=== PATIENT | female | born 1945 | race Caucasian/White ===

== ENCOUNTER → 2022-08-16 14:14 | Outpatient (BNVA) | payer BC, SELFPAY | PROVIDERS: PCP Nurse Practitioner Adult Health; Visit Provider Psychiatry & Neurology Neurology | DX: G51.31 Clonic hemifacial spasm, right (principal) | CPT/HCPCS: 64612; J0585 ==

== ENCOUNTER → 2022-12-01 08:23 | Outpatient (BNVA) | payer BC, SELFPAY | PROVIDERS: PCP Nurse Practitioner Adult Health; Visit Provider Psychiatry & Neurology Neurology | DX: G51.31 Clonic hemifacial spasm, right (principal) | CPT/HCPCS: 64612; J0585 ==

== ENCOUNTER 2024-01-23 08:35 | Outpatient (AMB) | payer OTHER, SELFPAY ==
--- NOTE | 2024-01-23 08:37 | MHC.OFFVIS ---
Vital Signs 01/23/24 08:38 Height 5 ft 3 in Weight 126 lb 8 oz BMI 22.4 BP 122/78 Blood Pressure Location Rt brachial Position Sitting Respiration 16 Pulse 97 Pulse Source Pulse Oximeter Pulse Oximetry (%) 97 Oxygen Delivery Method Room Air Intake Visit Reasons: follow up - Mailbox full Intake Note: Pt presents for one year follow up for Hemifacial spasm of right side of face. Ornament Stitcher Required: No Allergies No Known Allergies Allergy (Verified 01/23/24 08:38) HPI Comments Details: 79y/o female with right hemifacial spasm comes for follow up after over 1 year. she was managed with botox but due to her social issues she was unable to come to follow up appointments. she is her with her grand son and wants to restart botox as her spams have increases and is very uncomfortable. [facility] Medical History Hemifacial spasm of right side of face Hypothyroid High cholesterol Social History Alcohol intake: never Patient Tobacco Use Status: Never used Tobacco Physical Exam Vital Signs: Last Vital Signs Pulse 97 01/23/24 08:38 Resp 16 01/23/24 08:38 BP 122/78 01/23/24 08:38 Pulse Ox 97 01/23/24 08:38 Oxygen Delivery Method Room Air 01/23/24 08:38 BMI result Body Mass Index 22.4 Const General: cooperative and comfortable Nutritional Appearance: average body habitus Orientation/consciousness: patient oriented x3 Limitations: no limitations Neck Neck: Yes normal visual inspection Neuro Other: right hemifacial spasm spasm of right eyelids, frontalis, temporalis, zygomaticus orbicularis etc General: patient oriented x3 Cranial nerves: Yes Nystagmus not present and Yes Normal facial strength present Cognition (Neuro): normal cognition Gait exam (Neuro): Normal gait present Motor exam (neuro): 5/5 motor strength present throughout Coordination: kovblt-kt-wwcp test normal Assessment & Plan Assessment & Plan (1) Hemifacial spasm of right side of face: Code(s): G51.31 - Clonic hemifacial spasm, right Category: Medical Plan I will restart BOTOX will get a prior approval and schedule for injection. she will call insurance for transportation services Coding Level of Care Code Est Pt Level 3 (37536) Diagnoses Hemifacial spasm of right side of face G51.31
[2024-01-23 08:38] VITALS: BP 122/78; PULSE 97; RESP 16; O2SAT 97; BMI 22.4
== END 2024-01-23 09:06 | disposition home or self-care (01) ==
PROVIDERS: PCP Nurse Practitioner Adult Health; Visit Provider Psychiatry & Neurology Neurology
DX: G51.31 Clonic hemifacial spasm, right (principal)
CPT/HCPCS: 99213

== ENCOUNTER → 2024-01-23 08:35 | Outpatient (BNVA) | payer OTHER, SELFPAY | PROVIDERS: PCP Nurse Practitioner Adult Health; Visit Provider Psychiatry & Neurology Neurology ==

== ENCOUNTER 2024-03-14 13:53 | Outpatient (AMB) | payer OTHER, SELFPAY ==
--- NOTE | 2024-03-14 14:23 | A.OFFVIS_ITS ---
Vital Signs 03/14/24 14:25 Respiration 16 Pulse 110 H Pulse Source Pulse Oximeter Pulse Oximetry (%) 95 Oxygen Delivery Method Room Air Intake Visit Reasons: BOTOX - Confirmed Intake Note: Pt presents to the office for Botox injections for hemifacial spasms. 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 Side effects were discussed and an informed consent was obtained. Muscles injected Right Lateral canthus - 15 units each Right Lateral Lower eyelid-15 units each Right medial lower lid- 5 units Right Upper eyelid lateral- 5 units each Right Nasolabial fold 10 units each Right Frontalis 10 units Right zygomaticus 10 units Right orbicularis samuel 5 units right mentalis 5 units Total used 80 units Discarded 20 units PFSH Medical History Hemifacial spasm of right side of face Hypothyroid High cholesterol Social History Alcohol intake: never Patient Tobacco Use Status: Never used Tobacco Physical Exam Vital Signs: Last Vital Signs Pulse 110 H 03/14/24 14:25 Resp 16 03/14/24 14:25 Pulse Ox 95 03/14/24 14:25 Oxygen Delivery Method Room Air 03/14/24 14:25 Const General: cooperative and comfortable Nutritional Appearance: average body habitus Orientation/consciousness: patient oriented x3 Limitations: no limitations Neck Neck: Yes normal visual inspection Neuro Other: right hemifacial spasm spasm of right eyelids, frontalis, temporalis, zygomaticus orbicularis etc General: patient oriented x3 Cranial nerves: Yes Nystagmus not present and Yes Normal facial strength present Cognition (Neuro): normal cognition Gait exam (Neuro): Normal gait present Motor exam (neuro): 5/5 motor strength present throughout Coordination: xqoasd-us-bzft test normal Office Procedures Botulinum toxin Injection 24350 - Facial Nerve Procedure code (CPT) selection complete Office Meds onabotulinumtoxinA 100 unit solution for injection Performing Provider: Devorah Valdes MD Performing Location: [facility] [place] [facility] Administered by: Devorah Valdes MD on 03/14/24 14:44 Dose Route Admin Location Dispensed Lot Number Expiration Date [facility] 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 Comments: see HPI Assessment & Plan Assessment & Plan (1) Hemifacial spasm of right side of face: Code(s): G51.31 - Clonic hemifacial spasm, right Category: Medical Plan Patient tolerated the procedure well she will call with any side effects Orders: Orders AMB Botulinum toxin Injection - Patient Supplied Today G51.31 - Clonic hemifacial spasm, right Medications: New onabotulinumtoxinA 100 units subcut ONCE 1 ea 0RF hemifacial spasm G51.31 - Clonic hemifacial spasm, right Coding Level of Care Code Est Pt Level 1 (11074) Diagnoses Hemifacial spasm of right side of face G51.31 CPT Codes Botox Injection - Botox 2: 84121 - Facial Nerve ([id number])
[2024-03-14 14:25] VITALS: PULSE 110; RESP 16; O2SAT 95
== END 2024-03-14 14:39 | disposition home or self-care (01) ==
PROVIDERS: PCP Nurse Practitioner Adult Health; Visit Provider Psychiatry & Neurology Neurology
DX: G51.31 Clonic hemifacial spasm, right (principal)
CPT/HCPCS: 64612

== ENCOUNTER → 2024-03-14 13:53 | Outpatient (BNVA) | payer OTHER, SELFPAY | PROVIDERS: PCP Nurse Practitioner Adult Health; Visit Provider Psychiatry & Neurology Neurology | DX: G51.31 Clonic hemifacial spasm, right (principal) | CPT/HCPCS: 64612; 99211; J0585 ==

== ENCOUNTER 2024-07-17 12:54 | Outpatient (AMB) | payer OTHER, SELFPAY ==
[2024-07-17 12:55] VITALS: BMI 22.3
--- NOTE | 2024-07-17 12:55 | MHC.OFFVIS ---
Vital Signs 07/17/24 12:55 Height 5 ft 3 in Weight 126 lb BMI 22.3 Intake Visit Reasons: BOTOX Intake Note: patient here for botox Allergies No Known Allergies Allergy (Verified 07/17/24 12:58) Medication List - Last Reconciled 07/17/24 by Devorah Valdes MD atorvastatin 20 mg PO DAILY levothyroxine 88 mcg PO DAILY onabotulinumtoxinA (Botox) to be injected to facial muscles q 3 months; HPI Comments Details: 79y/o female comes for treatment of her right , hemifacial spasm with botox Botulinum toxin type A Lot no [id number] Exp 11/2026 was diluted with 2 cc of normal saline at a concentration of 5 units in 0.1 cc. Side effects were discussed and an informed consent was obtained. Muscles injected Right Lateral canthus - 15 units each Right Lateral Lower eyelid-15 units each Right medial lower lid- 5 units Right Upper eyelid lateral- 5 units each Right Nasolabial fold 10 units each Right Frontalis 10 units Right zygomaticus 10 units Right orbicularis samuel 5 units right mentalis 5 units Total used 80 units Discarded 20 units PFSH Medical History Hemifacial spasm of right side of face Hypothyroid High cholesterol Social History Alcohol intake: never Patient Tobacco Use Status: Never used Tobacco Physical Exam Vital Signs: BMI result Body Mass Index 22.3 Const General: cooperative and comfortable Nutritional Appearance: average body habitus Orientation/consciousness: patient oriented x3 Limitations: no limitations Neck Neck: Yes normal visual inspection Neuro Other: right hemifacial spasm spasm of right eyelids, frontalis, temporalis, zygomaticus orbicularis etc General: patient oriented x3 Cranial nerves: Yes Nystagmus not present and Yes Normal facial strength present Cognition (Neuro): normal cognition Gait exam (Neuro): Normal gait present Motor exam (neuro): 5/5 motor strength present throughout Coordination: lsvghz-mi-dijt test normal Office Procedures Botulinum toxin Injection 29916 - Facial Nerve Procedure code (CPT) selection complete Office Meds onabotulinumtoxinA 100 unit solution for injection Performing Provider: Devorah Valdes MD Performing Location: [facility] [place] [facility] Administered by: Devorah Valdes MD on 07/17/24 15:50 Dose Route Admin Location Dispensed Lot Number Expiration Date [employer] Clinical Documentation Nurse 80 unit subcut 100 units [id number] 11/02/26 6876-2360-44 [employer] Comments: see hpi Assessment & Plan Assessment & Plan (1) Hemifacial spasm of right side of face: Code(s): G51.31 - Clonic hemifacial spasm, right Category: Medical Plan Patient tolerated the procedure well she will call with any side effects Orders: Orders AMB Botulinum toxin Injection - Patient Supplied N/C Today G51.31 - Clonic hemifacial spasm, right Medications: New onabotulinumtoxinA 100 units subcut ONCE 1 ea 0RF hemifacial spasm G51.31 - Clonic hemifacial spasm, right Coding Level of Care Code Est Pt Level 1 (84625) Diagnoses Hemifacial spasm of right side of face G51.31 CPT Codes Botox Injection - Botox 2: 61225 - Facial Nerve ([id number])
== END 2024-07-17 13:52 | disposition home or self-care (01) ==
PROVIDERS: PCP Nurse Practitioner Adult Health; Visit Provider Psychiatry & Neurology Neurology
DX: G51.31 Clonic hemifacial spasm, right (principal)
CPT/HCPCS: 64612

== ENCOUNTER → 2024-07-17 12:54 | Outpatient (BNVA) | payer OTHER, SELFPAY | PROVIDERS: PCP Nurse Practitioner Adult Health; Visit Provider Psychiatry & Neurology Neurology | DX: G51.31 Clonic hemifacial spasm, right (principal) | CPT/HCPCS: 64612; 99211; J0585 ==

== ENCOUNTER 2024-11-12 09:30 | Outpatient (AMB) | payer OTHER, SELFPAY ==
[2024-11-12 09:32] VITALS: BP 130/80; PULSE 102; O2SAT 100; BMI 22.3
--- NOTE | 2024-11-12 09:32 | A.OFFVIS_ITS ---
Vital Signs 11/12/24 09:32 Height 5 ft 3 in Weight 126 lb BMI 22.3 BP 130/80 Blood Pressure Location Rt brachial Position Sitting Pulse 102 H Pulse Source Pulse Oximeter Pulse Oximetry (%) 100 Oxygen Delivery Method Room Air Intake Visit Reasons: Botox (buy and bill) Intake Note: Patient presents for botox injection. practice supplied Allergies No Known Allergies Allergy (Verified 07/17/24 12:58) Medication List - Last Reconciled 11/12/24 by Devorah Valdes MD atorvastatin 20 mg PO DAILY levothyroxine 88 mcg PO DAILY onabotulinumtoxinA (Botox) to be injected to facial muscles q 3 months; HPI Comments Details: 79y/o female comes for treatment of her right , hemifacial spasm with botox Botulinum toxin type A Lot no [id number] Exp 11/2026 was diluted with 2 cc of normal saline at a concentration of 5 units in 0.1 cc. Side effects were discussed and an informed consent was obtained. Muscles injected Right Lateral canthus - 15 units each Right Lateral Lower eyelid-15 units each Right medial lower lid- 5 units Right Upper eyelid lateral- 5 units each Right Nasolabial fold 10 units each Right Frontalis 10 units Right zygomaticus 10 units Right orbicularis samuel 5 units right mentalis 5 units Total used 80 units Discarded 20 units PFSH Medical History Hemifacial spasm of right side of face Hypothyroid High cholesterol Social History Alcohol intake: never Patient Tobacco Use Status: Never used Tobacco Physical Exam Vital Signs: Last Vital Signs Pulse 102 H 11/12/24 09:32 BP 130/80 11/12/24 09:32 Pulse Ox 100 11/12/24 09:32 Oxygen Delivery Method Room Air 11/12/24 09:32 BMI result Body Mass Index 22.3 Const General: cooperative and comfortable Nutritional Appearance: average body habitus Orientation/consciousness: patient oriented x3 Limitations: no limitations Neck Neck: Yes normal visual inspection Neuro Other: right hemifacial spasm spasm of right eyelids, frontalis, temporalis, zygomaticus orbicularis etc General: patient oriented x3 Cranial nerves: Yes Nystagmus not present and Yes Normal facial strength present Cognition (Neuro): normal cognition Gait exam (Neuro): Normal gait present Motor exam (neuro): 5/5 motor strength present throughout Coordination: jarjvm-wj-pmif test normal Office Procedures Botulinum toxin Injection 32492 - Facial Nerve Procedure code (CPT) selection complete Office Meds onabotulinumtoxinA 100 unit solution for injection Performing Provider: Devorah Valdes MD Performing Location: [facility] [place] [facility] Administered by: Devorah Valdes MD on 11/12/24 15:35 Dose Route Admin Location Dispensed Lot Number Expiration Date [facility] 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 Waste 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 80 unit subcut 100 units [id number] [employer] Comments: see HPI Assessment & Plan Assessment & Plan (1) Hemifacial spasm of right side of face: Code(s): G51.31 - Clonic hemifacial spasm, right Category: Medical Plan Patient tolerated the procedure well she will call with any side effects Orders: Orders AMB Botulinum toxin Injection Today G51.31 - Clonic hemifacial spasm, right Medications: New onabotulinumtoxinA 100 units subcut ONCE 1 ea 0RF G51.31 - Clonic hemifacial spasm, right Coding Level of Care Code Est Pt Level 1 (31758) Diagnoses Hemifacial spasm of right side of face G51.31 CPT Codes Botox Injection - Botox 2: 21250 - Facial Nerve ([id number])
== END 2024-11-12 09:48 | disposition home or self-care (01) ==
LOC: HO.HSMS 09:32
PROVIDERS: PCP Nurse Practitioner Adult Health; Visit Provider Psychiatry & Neurology Neurology
DX: G51.31 Clonic hemifacial spasm, right (principal)
CPT/HCPCS: 64612

== ENCOUNTER → 2024-11-12 09:30 | Outpatient (BNVA) | payer MEDICARE, SELFPAY | PROVIDERS: PCP Nurse Practitioner Adult Health; Visit Provider Psychiatry & Neurology Neurology | DX: G51.31 Clonic hemifacial spasm, right (principal) | CPT/HCPCS: 64612; 99211; J0585 ==

== ENCOUNTER 2025-02-13 13:56 | Outpatient (AMB) | payer OTHER, SELFPAY ==
--- NOTE | 2025-02-13 14:05 | MHC.OFFVIS ---
Vital Signs 02/13/25 14:12 Height 5 ft 3 in Weight 126 lb BMI 22.3 Intake Visit Reasons: Botox Intake Note: Patient presents for botox injection. patient supplied Allergies No Known Allergies Allergy (Verified 07/17/24 12:58) Medication List - Last Reconciled 02/13/25 by Devorha Valdes MD atorvastatin 20 mg PO DAILY levothyroxine 88 mcg PO DAILY onabotulinumtoxinA (Botox) to be injected to facial muscles q 3 months; HPI Comments Details: 80y/o female comes for treatment of her right , hemifacial spasm with botox Botulinum toxin type A Lot no [id number] Exp 06/2027 was diluted with 2 cc of normal saline at a concentration of 5 units in 0.1 cc. Side effects were discussed and an informed consent was obtained. Muscles injected Right Lateral canthus - 15 units each Right Lateral Lower eyelid-15 units each Right medial lower lid- 5 units Right Upper eyelid lateral- 5 units each Right Nasolabial fold 10 units each Right Frontalis 10 units Right zygomaticus 10 units Right orbicularis samuel 5 units right mentalis 5 units Total used 80 units Discarded 20 units PFSH Medical History Hemifacial spasm of right side of face Hypothyroid High cholesterol Social History Alcohol intake: never Patient Tobacco Use Status: Never used Tobacco Physical Exam Vital Signs: BMI result Body Mass Index 22.3 Const General: cooperative and comfortable Nutritional Appearance: average body habitus Orientation/consciousness: patient oriented x3 Limitations: no limitations Neck Neck: Yes normal visual inspection Neuro Other: right hemifacial spasm spasm of right eyelids, frontalis, temporalis, zygomaticus orbicularis etc General: patient oriented x3 Cranial nerves: Yes Nystagmus not present and Yes Normal facial strength present Cognition (Neuro): normal cognition Gait exam (Neuro): Normal gait present Motor exam (neuro): 5/5 motor strength present throughout Coordination: whztkv-kk-svfs test normal Office Procedures Botulinum toxin Injection 93846 - Facial Nerve Procedure code (CPT) selection complete Office Meds onabotulinumtoxinA 100 unit solution for injection Performing Provider: Devorah Valdes MD Performing Location: [facility] [place] [facility] Administered by: Devorah Valdes MD on 02/13/25 14:46 Dose Route Admin Location Dispensed Lot Number Expiration Date [employer] 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 100 units [id number] [employer] Comments: see HPI Assessment & Plan Assessment & Plan (1) Hemifacial spasm of right side of face: Code(s): G51.31 - Clonic hemifacial spasm, right Category: Medical Plan Patient tolerated the procedure well she will call with any side effects Orders: Orders AMB Botulinum toxin Injection - Patient Supplied N/C Today G51.31 - Clonic hemifacial spasm, right Medications: New onabotulinumtoxinA 100 units subcut ONCE 1 ea 0RF Hemifacial spasm G51.31 - Clonic hemifacial spasm, right Coding Level of Care Code Est Pt Level 1 (22267) Diagnoses Hemifacial spasm of right side of face G51.31 CPT Codes Botox Injection - Botox 2: 39538 - Facial Nerve ([id number])
[2025-02-13 14:12] VITALS: BMI 22.3
--- OUTSIDE RECORDS SUMMARY | 2025-02-13 16:25 | XMS_ITS | Continuity of Care Document ---
Author Organization [facility] Address [address] [place] [address] [address] [place], [place] Phone [phone] Care Team Providers Care Physical Security Engineer Name Role Phone Sharifa Rivas Care Team Information Optical Instrument Repairer U navailable Social History Type Date Description Comments Sex Female Sex Unknown
== END 2025-02-13 14:29 | disposition home or self-care (01) ==
LOC: HO.HSMS 13:57
PROVIDERS: PCP Nurse Practitioner Adult Health; Visit Provider Psychiatry & Neurology Neurology
DX: G51.31 Clonic hemifacial spasm, right (principal)
CPT/HCPCS: 64612

== ENCOUNTER → 2025-02-13 13:56 | Outpatient (BNVA) | payer OTHER, SELFPAY | PROVIDERS: PCP Nurse Practitioner Adult Health; Visit Provider Psychiatry & Neurology Neurology | DX: G51.31 Clonic hemifacial spasm, right (principal) | CPT/HCPCS: 64612; 99211; J0585 ==

== ENCOUNTER 2025-06-10 14:18 | Outpatient (AMB) | payer OTHER, SELFPAY ==
--- NOTE | 2025-06-10 14:21 | MHC.OFFVIS ---
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 Side effects were discussed and an informed consent was obtained. Muscles injected Right Lateral canthus - 15 units each Right Lateral Lower eyelid-15 units each Right medial lower lid- 5 units Right Upper eyelid lateral- 5 units each Right Nasolabial fold 10 units each Right Frontalis 10 units Right zygomaticus 10 units Right orbicularis samuel 5 units right mentalis 5 units Total used 80 units Discarded 20 units PFSH Medical History Hemifacial spasm of right side of face Hypothyroid High cholesterol Social History Alcohol intake: never Patient Tobacco Use Status: Never used Tobacco Physical Exam Vital Signs: Last Vital Signs Pulse 97 06/10/25 14:22 BP 122/80 06/10/25 14:22 Pulse Ox 95 06/10/25 14:22 Oxygen Delivery Method Room Air 06/10/25 14:22 BMI result Body Mass Index 22.4 Const General: cooperative and comfortable Nutritional Appearance: average body habitus Orientation/consciousness: patient oriented x3 Limitations: no limitations Neck Neck: Yes normal visual inspection Neuro Other: right hemifacial spasm spasm of right eyelids, frontalis, temporalis, zygomaticus orbicularis etc General: patient oriented x3 Cranial nerves: Yes Nystagmus not present and Yes Normal facial strength present Cognition (Neuro): normal cognition Gait exam (Neuro): Normal gait present Motor exam (neuro): 5/5 motor strength present throughout Coordination: muppai-fb-oxkr test normal Office Procedures Botulinum toxin Injection 81182 - Facial Nerve Procedure code (CPT) selection complete Office Meds onabotulinumtoxinA 100 unit solution for injection Performing Provider: Devorah Valdes MD Performing Location: [facility] [place] [facility] Administered by: Devorah Valdes MD on 06/10/25 14:48 Dose Route Admin Location Dispensed Lot Number Expiration Date [facility] 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
[2025-06-10 14:22] VITALS: BP 122/80; PULSE 97; O2SAT 95; BMI 22.4
--- OUTSIDE RECORDS SUMMARY | 2025-06-10 17:40 | XMS_ITS | Continuity of Care Document ---
Author Organization [facility] Address [address] [place] [address] [address] [place], [place] Phone [phone] Care Team Providers Care Treasury Management Sales Consultant Name Role Phone Sharifa Rivas Care Team Information Jig Builder Helper U navailable Social History Type Date Description Comments Sex Female Sex Unknown
== END 2025-06-10 14:47 | disposition home or self-care (01) ==
LOC: HO.HSMS 14:19
PROVIDERS: PCP Nurse Practitioner Adult Health; Visit Provider Psychiatry & Neurology Neurology
DX: G51.31 Clonic hemifacial spasm, right (principal)
CPT/HCPCS: 64612

== ENCOUNTER → 2025-06-10 14:18 | Outpatient (BNVA) | payer OTHER, SELFPAY | PROVIDERS: PCP Nurse Practitioner Adult Health; Visit Provider Psychiatry & Neurology Neurology | DX: G51.31 Clonic hemifacial spasm, right (principal) | CPT/HCPCS: 64612; 99211; J0585 ==